=== PATIENT | male | born 1970 | race Caucasian/White ===

== ENCOUNTER 2016-07-01 10:23 | Emergency (ER) | payer OTHER ==
[~2016-07-01] VITALS: Ht 177.8 cm; Wt 108.9 kg
--- NOTE | 2016-07-01 11:13 | ED HAND/WRIST INJURY COMPLAINT ---
History of Present Illness General Chief Complaint: Laceration Procedure Stated Complaint: HAND INJURY Source: patient, old records Exam Limitations: no limitations Vital Signs & Intake/Output Vital Signs & Intake/Output Vital Signs Date Time Temp Pulse Resp B/P Pulse O2 O2 Flow FiO2 Ox Delivery Rate 07/01 1227 96.4 61 16 153/85 96 Room Air 07/01 1038 98.5 80 18 168/108 99 Room Air Allergies Coded Allergies: No Known Allergies (07/01/16) Reconcile Medications Amoxicillin/Potassium Clav (Augmentin 875-125 Tablet) 875 MG-125 MG TABLET 1 TAB PO BID PPX Amoxicillin/Potassium Clav (Augmentin 875-125 Tablet) 875 MG-125 MG TABLET 1 TAB PO BID ppx Hydrocodone/Acetaminophen (Hydrocodon-Acetaminoph 7.5-325) 7.5 MG-325 MG TABLET 1-2 TAB PO Q4-6 PRN PRN PAIN (Reported) Hydrocodone/Acetaminophen (Rhame 5-325 Tablet) 5 MG-325 MG TABLET 1-2 TAB PO Q4-6 PRN PRN PAIN Hydrocodone/Acetaminophen (Rhame 5-325 Tablet) 5 MG-325 MG TABLET 1-2 TAB PO Q4-6 PRN PRN pain Lisinopril/Hydrochlorothiazide (Lisinopril-Hctz 10-12.5 MG Tab) 10 MG-12.5 MG TABLET 1-2 TAB PO DAILY HTN (Reported) Propranolol HCl (Propranolol HCl ER) 120 MG CAP.SA.24H 1 CAP PO DAILY MIGRAINES (Reported) Triage Note: C/O PAIN WITH NAIL AVULSION/LACERATION TO LEFT FOREFINGER. SMASHED FIRST 2 FINGERS ON 50 LB WEIGHT AT GYM. Triage Nurses Notes Reviewed? yes Occurred: just prior to arrival Duration: hour(s): (1), constant Timing: single episode today Injury Environment: GYM Severity: moderate, severe Severity Numbers: 10 Pain/Injury Location: Left: 2nd finger, 3rd finger. Context: crush Method of Injury: laceration No Modifying Factors: none Associated Symptoms: none HPI: 45-year-old male with history of hypertension presents to ER for evaluation status post sustaining injury to his left second and third fingers just prior to arrival at the gym when he dropped a 50 pound weight on his fingers. He is right-hand dominant his last tetanus is unknown. He now presents complaining of constant aching throbbing pain over the distal aspect of both fingers. There is no other injury he denies any hand or finger pain otherwise. He took a Vicodin prior to arrival with improvement in his symptoms he denies any numbness or tingling to the distal aspects of the fingers (DRE MONTOYA) Past History Travel History Traveled to [place] past 21 day No Medical History Any Pertinent Medical History? see below for history Cardiovascular: hypertension Surgical History Surgical History: none Psychosocial History What is your primary language Swiss Tobacco Use: Never used ETOH Use: occasional use Family History Hx Contributory? No (DRE MONTOYA) Review of Systems Review of Systems Constitutional: Reports: see HPI. All Other Systems: Reviewed and Negative Comments Review of systems: See HPI, All other systems negative. Constitutional, no chills no fever, no malaise HEENT: no sore throat no congestion, Cardiovascular: No chest pain , no palpitation Skin, n no rashes, no change in skin Respiratory: No dyspnea no cough no sputum GI: No nausea no vomiting, no diarrhea : No dysuria Muscle skeletal:joint pain, no back pain, no neck pain, Neurologic: No numbness no confusion Psych: No stress Heme/endocrine: No bruising no bleeding Immunology: No lymphadenopathy (DRE MONTOYA) Physical Exam Physical Exam General Appearance: well developed/nourished, no apparent distress, alert Hand Left: lacerations, nail injury, 2nd finger, 3rd finger Hand Right: normal inspection, normal range of motion Comments: Well-developed well-nourished patient in no apparent distress. HEENT: Atraumatic, extraocular motion intact Neck: Supple, FROM Back: FROM Respiratory:No respiratory distress. Patient speaking in full complete sentences Shoulder: Atraumatic/Stable. FROM . Elbow: Atraumatic/stable. FROM. No laxity Upper arm/Forearm: Atraumatic. Nontender. No edema, 5 out of 5 bin packer strength noted to bilateral upper extremities Hand/Wrist: There is a 1.5 cm linear laceration over the medial aspect of the left third finger, there is a positive deformity and proximal nail bed injury moderate swelling over the left second finger, positive active bleeding Refills within normal limits. Sensation patient has full range of motion of both fingers tender to palpation, the rest of the fingers and hand are atraumatic nontender FROM Pulses: Normal/equal radial pulses bilaterally. Brisk cap refill Lower Extremities: full range of motion Neuro: Alert and oriented x3 Skin: Warm & dry;No appreciable rash on exposed skin Psych: Mood affect normal, normal memory normal judgment. (CATINA BYRD,DRE) Progress Differential Diagnosis: cellulitis, contusion, compartment syndrome, dislocation , fracture, sprain, tendon injury rupture, embedded fb Plan of Care: Current Medications Sig/Mariusz Start time Last Medication Dose Stop Time Status Admin Ampicillin Sodium/ 3,000 MG ONCE ONE 07/01 1145 CAN Sulbactam Sodium 07/01 1214 (Unasyn) Sodium Chloride 100 ML (Normal Saline 0.9%) I discussed the patient his x-ray results a digital block was performed to the left second and third fingers by myself using lidocaine 1%, I discussed with him his x-ray results need for a dose of IV antibiotics given open fracture. Discussed with the patient the harms and risks of not getting this administered which she is refusing stating that is "going to take too long" I discussed with him that this medication will not take long but also it is highly recommended given the wound. Patient is again declining Augmentin 1000 mg ordered. Sutures sutures were placed to the left second finger securing the proximal nailbed to the finger, sterile dressings bacitracin and splint were applied to the left second finger I discussed with the patient at length the possibility of a tendon injury still exists, the patient has normal capillary refill to all fingers on the left hand. Sensation. Discussed the need to follow up closely with Dr. Patel on Sunday plastics, advised to return anytime sooner with any concerns or signs of infection I answered all his questions prescription for Vicodin and Augmentin was provided he feels comfortable with this plan and he will return anytime sooner with any concerns. PATIENT: HUBER CAZARES PRESENT AGE: 45 PATIENT ACCOUNT NO: [id number] : 68 LOCATION: [facility] ORDERING PHYSICIAN: DRE BYRD SERVICE DATE: 07/01/16 EXAM TYPE: RAD - XRY-HAND, LEFT EXAMINATION: XR HAND, LEFT CLINICAL INFORMATION: Crush injury left second finger. COMPARISON: None TECHNIQUE: AP, lateral, and oblique views of the left hand. FINDINGS: There is a lacerated, displaced fracture mid segment distal phalanx second digit. In addition there is an open wound along the dorsal aspect. There is mild soft tissue swelling. Loss of joint space and periarticular osteophyte formation seen in DIP joints of third through fifth digits and PIP joints second through fifth digits. No additional fractures seen. IMPRESSION: Displaced fracture and laceration through the mid segment distal phalanx second digit. There is an open wound along the dorsal aspect with mild soft tissue swelling. 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 DICTATED BY: RANDY COLBERT MD DATE/TIME DICTATED:07/01/161228 HOUSEHOLD REFRIGERATION MECHANIC:FLETCHER DATE/TIME TRANSCRIBED:07/01/161228 CONFIDENTIAL, DO NOT COPY WITHOUT APPROPRIATE AUTHORIZATION. <Electronically signed in Other Vendor System> SIGNED BY: RANDY COLBERT MD 07/01/16 1235 (DRE MONTOYA) Diagnostic Imaging: Viewed by Me: Radiology Read. Discussed w/RAD: Radiology Read. (DRE MONTOYA) Departure Departure Time of Disposition: 1225 Disposition: HOME OR SELF CARE Condition: Stable Clinical Impression Primary Impression: Finger fracture Secondary Impressions: Finger laceration Referrals: DULCE MAHAJAN MD (PCP/Family) NIGEL JAVIER,NIKOLAS Navarrete Additional Instructions: Augmentin as discussed for prophylaxis. Vicodin for breakthrough pain use caution as this may make you drowsy no driving or drinking alcohol while taking. Follow-up with hand specialist Dr. Patel on Sunday. Finger splint at all times. As discussed the possibility of a deep tendon injury not seen on exam exist return anytime sooner with any concerns or signs of infection: Redness warmth swelling discharge fever chills Departure Forms: Customer Survey General Discharge Information Prescriptions: Current Visit Scripts Hydrocodone/Acetaminophen (Rhame 5-325 Tablet) 1-2 TAB PO Q4-6 PRN PRN PAIN #15 TAB Amoxicillin/Potassium Clav (Augmentin 875-125 Tablet) 1 TAB PO BID #14 TAB Amoxicillin/Potassium Clav (Augmentin 875-125 Tablet) 1 TAB PO BID #14 TAB Hydrocodone/Acetaminophen (Rhame 5-325 Tablet) 1-2 TAB PO Q4-6 PRN PRN pain #20 TAB (DRE MONTOYA) PA/PRINCIPAL JAVA SOFTWARE ENGINEER Co-Sign Statement Statement: ED Attending supervision documentation- [] I saw and evaluated the patient. I have also reviewed all the pertinent lab results and diagnostic results. I agree with the findings and the plan of care as documented in the PA's/PRINCIPAL JAVA SOFTWARE ENGINEER's documentation. [X] I have reviewed the ED Record and agree with the PA's/PRINCIPAL JAVA SOFTWARE ENGINEER's documentation. [] Additions or exceptions (if any) to the PAs/PRINCIPAL JAVA SOFTWARE ENGINEER's note and plan are summarized below: [] (ELEUTERIO JAVIER,PARDEEP Turcios) Procedures Laceration/Wound Repair Laceration/Wound Repair: 1 Wound Location: upper extremity (left 3rd) Wound's Depth, Shape: linear, superficial Wound Length (cm): 1.5 Wound Explored: clean, irrigated extensively Irrigated w/ Saline (ccs): 200 Betadine Prep? Yes Anesthesia: digit block Volume Anesthetic (ccs): 6 Wound Repaired With: sutures Suture Size/Type: 4:0 Number of Sutures: 7 Layer Closure? No Sterile Dressing Applied: Yes Date of Last Tetanus: 07/01/16 Tetanus Status: not up to date Laceration/Wound Repair: 2 Wound Location: left 2nd Wound's Depth, Shape: nail avulsed Wound Length (cm): 1 Wound Explored: clean, no foreign body removed, irrigated extensively Irrigated w/ Saline (ccs): 200 Betadine Prep? Yes Anesthesia: digit block Volume Anesthetic (ccs): 6 Wound Repaired With: sutures Suture Size/Type: 4:0 (absorbable) Number of Sutures: 2 Layer Closure? No Splint Applied? Yes (nv intact after application) (DRE MONTOYA)
[2016-07-01] MEDS ORDERED: LISINOPRIL-HCT1 EAC2 PO (11:25)
[2016-07-01] MEDS ORDERED: PROPRANOLOL HC120 M1 PO (11:25)
[2016-07-01] MEDS ORDERED: HYDROCODON-ACE1 EAC3 PO (11:25)
[2016-07-01 12:27] VITALS: BP 153/85
[2016-07-01] MEDS ORDERED: AUGMENTIN 875-1 EACH PO ×2 (12:27→12:31)
[2016-07-01] MEDS ORDERED: NORCO 5-325 TA1 EACH PO ×2 (12:27→12:31)
--- NOTE | 2016-07-01 12:35 | RADIOLOGY REPORT ---
EXAMINATION: XR HAND, LEFT CLINICAL INFORMATION: Crush injury left second finger. COMPARISON: None TECHNIQUE: AP, lateral, and oblique views of the left hand. FINDINGS: There is a lacerated, displaced fracture mid segment distal phalanx second digit. In addition there is an open wound along the dorsal aspect. There is mild soft tissue swelling. Loss of joint space and periarticular osteophyte formation seen in DIP joints of third through fifth digits and PIP joints second through fifth digits. No additional fractures seen. IMPRESSION: Displaced fracture and laceration through the mid segment distal phalanx second digit. There is an open wound along the dorsal aspect with mild soft tissue swelling. 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
== END 2016-07-01 12:34 ==
LOC: ERH 10:23
DX: S62.631A Displaced fracture of distal phalanx of left index finger, initial encounter for closed fracture (principal); S61.313A Laceration without foreign body of left middle finger with damage to nail, initial encounter; S61.213A Laceration without foreign body of left middle finger without damage to nail, initial encounter; W23.0XXA Caught, crushed, jammed, or pinched between moving objects, initial encounter; Y93.B3 Activity, free weights; Y92.39 Other specified sports and athletic area as the place of occurrence of the external cause
CPT/HCPCS: 73130-LT; 90471; 90714; J3490

== ENCOUNTER → 2016-07-14 | Day surgery (SDC) | payer OTHER ==
[~2016-07-14] VITALS: Ht 177.8 cm; Wt 111.1 kg
[~2016-07-14] MED LIST: AUGMENTIN 875-1 EACH PO; HYDROCODON-ACE1 EAC3 PO; LISINOPRIL-HCT1 EAC2 PO; NORCO 5-325 TA1 EACH PO; PROPRANOLOL HC120 M1 PO
--- NOTE | 2016-07-14 09:26 | Operative Report ---
Operative/Inv Procedure Report Surgery Date: 07/14/16 Name of Procedure: Manipulation with K wire fixation distal phalanx fracture left small finger fluoroscopy, nailbed repair Pre-Operative Diagnosis: Immediate fracture left index finger Post-Operative Diagnosis: Same Estimated Blood Loss: scant Surgeon/Supervisor Electronics Testing: NIGEL JAVIER,NIKOLAS Navarrete Anesthesia: moderate sedation Operative/Procedure Note Note: Patient was counseled Singh procedure the alternatives the risks and expected outcomes as relates to request for surgical intervention to treated distracted comminuted fracture. Patient had attempt at manipulation the office with a follow-up x-ray showing poor alignment. He is requesting a buried pin after given all of the options. Typically discussed the risks of pain stiffness possibility of nonunion action with the wire loss of function. He will have stiffness following the procedure and will likely require physical therapy. He has an injury to the nailbed and I have abnormality of nail growth in the future. Once agreed informed consent was signed. Dictated operative placed supine on the table. Intravenous antibiotics and sedation were given in the left hand was prepped and draped in usual sterile fashion. Intraoperative fluoroscopy was used to identify the fractured segment. The patient did not provide adequate alignment. Therefore K wire was placed through the tip of the distal phalanx under alignment was good and the wire was cut beneath the level of skin. The nailbed was then repaired with additional 5-0 chromic sutures after debriding the nail plate once again Betadine irrigation and debridement of any nonviable skin around the periphery. Fluoroscopic guidance transverse the fracture site through the DIP into the distal portion of the middle phalanx.
== END ==
LOC: STS 01:53
DX: S62.631A Displaced fracture of distal phalanx of left index finger, initial encounter for closed fracture (principal); X58.XXXA Exposure to other specified factors, initial encounter; I10 Essential (primary) hypertension; G43.909 Migraine, unspecified, not intractable, without status migrainosus; E78.5 Hyperlipidemia, unspecified
CPT/HCPCS: J0690; J1885; J2250